=== PATIENT | female | born 1995 | race Hispanic/Latino ===

== ENCOUNTER 2018-06-03 22:54 | Emergency (ER) | payer OTHER ==
[2018-06-03 23:23] LABS: #Eosinphils 0.2 thou/uL (0.0-0.7); #Lymphocytes 3.1 thou/uL (1.20-3.40); #Monocytes 0.5 thou/uL (0.11-0.59); #Neutrophils 4.1 thou/uL (1.40-6.50); %Basophils 0.5 % (0.0-1.0); %Eosinophils 2.2 % (0.0-10.0); %Monocytes 6.3 % (0.0-10.0); Hemoglobin 15.8 g/dL (12.0-16.0); Mean Corpuscular HGB CONC 33.9 g/dL (32.0-36.0); Mean Corpuscular Hemoglobin 31.4 pg (27.0-31.0); Mean Corpuscular Volume 92.5 fL (78.0-98.0); Mean Platelet Volume 7.4 fL (7.4-10.4); Platelet Count 357 thou/uL (130-400); RBC Distribution Width 11.3 % (11.5-14.5); Red Blood Cell (RBC) Count 5.03 mill/uL (4.20-5.40); White Blood Cell (WBC) Count 7.8 thou/uL (4.8-10.8)
[2018-06-03] MEDS ORDERED: Fentanyl 100 MCG/2 ML VIAL ONE (23:33)
[2018-06-03] MEDS ORDERED: Ketorolac Tromethamine 30 MG/ML VIAL ONE (23:33)
[2018-06-03] MEDS ORDERED: Ondansetron PF 4 MG/2 ML Vial ONE (23:33)
[2018-06-03 23:47] LABS: ALT (SGPT) 14 U/L (8-55); AST (SGOT) 19 U/L (5-34); Albumin 4.5 g/dL (3.5-5.0); Alkaline Phosphatase 95 U/L (40-150); Anion Gap 12 mmol/L (10-20); BUN (Urea Nitrogen) 8 mg/dL (7.0-18.7); Bilirubin, Total 0.5 mg/dL (0.2-1.2); Calc. Creatinine Clearance 0 mL/min (70-130); Calcium 9.9 mg/dL (7.8-10.44); Carbon Dioxide 25 mmol/L (22-29); Chloride 104 mmol/L (98-107); Estimated GFR-MDRD Greater than 90; Globulin 3.7 g/dL (2.4-3.5); Glucose 94 mg/dL (70-105); Lipase 18 U/L (8-78); Potassium 3.9 mmol/L (3.5-5.1); Protein, Total 8.2 g/dL (6.0-8.3); Sodium 137 mmol/L (136-145)
[2018-06-04 00:29] LABS: BHCG - Serum Negative (NEGATIVE); Pregs Control Background? CLEAR/WHITE (CLR/WHITE); Pregs Control Bar Appear? YES (CONTROL BAR)
[2018-06-04] MEDS ORDERED: Morphine 4 MG/ML VIAL ONE (01:19)
[2018-06-04 02:40] LABS: Bilirubin Negative (Negative); Blood, Urine Negative (Negative); Clarity CLOUDY (Clear); Glucose, Urine (Dipstick) Negative (Negative); Leukocyte Moderate (Negative); Nitrite Negative (Negative); Protein, Urine (Dipstick) Negative (Neg-Trace); Specific Gravity, Urine 1.017 (1.002-1.036)
[2018-06-04 02:42] LABS: Bacteria/HPF Rare-Few HPF (None Seen); Pregnancy Test - Urine (BHCG) Negative (Negative); Pregu Control Background? CLEAR/WHITE (CLR/WHITE); Pregu Control Bar Appear? YES (CONTROL BAR); Specific Gravity 1.017 (1.002-1.036); Squamous Epithelial 21-50 HPF (0-3)
[2018-06-04 02:43] LABS: Pathc Cast-AUWi Flag 3.53 (0-2.49)
[2018-06-04 02:45] LABS: Hyaline Casts/LPF NONE SEEN LPF (0-3 Hyaline); Other Casts/LPF None Seen LPF (0-3 Hyaline)
--- NOTE | 2018-06-04 07:32 | CT ---
CT ABDOMEN AND PELVIS NONCONTRAST: Date: 06/03/18 INDICATION: Abdominal pain. FINDINGS: Visualized lower lung zones are clear. Evidence of prior cholecystectomy. There is no urolithiasis or obstructive uropathy. No free air or ascites. The bowel, solid abdominal organs, lymph nodes, and va sculature are limited in assessment on the basis of noncontrast technique. No acute osseous pathology is evident. IMPRESSION: No urolithiasis or obstructive uropathy. Evaluation otherwise limited on the basis of noncontrast technique. POS: [facility]
== END 2018-06-04 02:59 | disposition home or self-care (01) ==
LOC: ERS 22:54
DX: N39.0 Urinary tract infection, site not specified (principal)
CPT/HCPCS: 74176; 80053; 81003; 81015; 81025; 82550; 83690; 84703; 85025; 87086; 96361; 96374; 96375; J1885; J2270; J2405; J3010